=== PATIENT | male | born 1935 | race Caucasian/White ===

== ENCOUNTER 2016-07-07 01:29 | Emergency (ER) | payer MEDICARE, BC ==
[2016-07-07 02:05] LABS: APPEARANCE CLEAR (CLEAR); BILIRUBIN NEGATIVE (NEGATIVE); COLOR YELLOW (YELLOW); GLUCOSE NEGATIVE (NEGATIVE); KETONE NEGATIVE (NEGATIVE); LEUKOCYTE ESTERASE NEGATIVE (NEGATIVE); NITRITE NEGATIVE (NEGATIVE); PROTEIN NEGATIVE (NEGATIVE); UROBILINOGEN NORMAL (NORMAL)
== END 2016-07-07 02:30 | disposition home or self-care (01) ==
LOC: D.ER 01:29
PROVIDERS: Emergency Medicine
DX: R33.9 Retention of urine, unspecified (principal); I10 Essential (primary) hypertension